=== PATIENT | female | born 1950 ===

== ENCOUNTER 2017-05-17 12:57 | Outpatient (CLI) | payer OTHER | END 2017-05-17 23:59 | disposition home or self-care (01) | LOC: 64 CT 12:57 | PROVIDERS: ATTEND Internal Medicine | DX: J34.89 Other specified disorders of nose and nasal sinuses (principal); R40.1 Stupor; H35.40 Unspecified peripheral retinal degeneration | CPT/HCPCS: 70450 ==

== ENCOUNTER 2017-06-12 17:54 | Inpatient (IN) | payer MEDICARE, OTHER ==
[~2017-06-12] VITALS: Ht 157.5 cm; Wt 91.8 kg
[2017-06-12] MEDS ORDERED: normal saline 1000ML IV soln IV ONE ×2 (18:00→19:05)
[2017-06-12] MEDS ORDERED: levoFLOXACIN-Levaquin 750MG/D5 150 ML IV ONE (18:00)
[2017-06-12 18:40] LABS: BASOPHILS % (AUTO) 0 % (0-1); EOSINOPHILS # (AUTO) 0.1 X10'3 (0-0.9); EOSINOPHILS % (AUTO) 0.2 % (0-6); HEMATOCRIT 30.4 % (35.0-45.0); HEMOGLOBIN 10.1 g/dl (12.0-16.0); LYMPHOCYTES # (AUTO) 1.9 X10'3 (1.1-4.8); LYMPHOCYTES % (AUTO) 5.6 % (21-51); MEAN CORPUSCULAR HEMOGLOBIN 28.2 PG (27.0-31.0); MEAN CORPUSCULAR HGB CONC 33.3 % (33.0-36.5); MEAN CORPUSCULAR VOLUME 84.6 FL (78-98); MEAN PLATELET VOLUME 8.5 FL (7.4-10.4); MONOCYTES % (AUTO) 2.8 % (2-12); NEUTROPHILS # (AUTO) 31.5 X10'3 (1.8-7.7); NEUTROPHILS % (AUTO) 91.4 % (42-75); PLATELET COUNT 66 X10'3 (140-440)
[2017-06-12 18:44] LABS: INR 1.1 INR; PARTIAL THROMBOPLASTIN TIME 31 SECONDS (22-32)
[2017-06-12 18:49] LABS: ALANINE AMINOTRANSFERASE 12 U/L (12-78); ALBUMIN/GLOBULIN RATIO 0.5 (1.1-1.5); ALKALINE PHOSPHATASE 125 IU/L (46-116); ANION GAP 14 (8-16); ASPARTATE AMINO TRANSFERASE 14 U/L (10-37); BILIRUBIN,TOTAL 0.4 MG/DL (0.1-1.0); BLOOD UREA NITROGEN 67 MG/DL (7-18); BUN/CREATININE RATIO 30.9 (6.6-38.0); CHLORIDE 109 MMOL/L (99-107); CREATININE 2.17 MG/DL (0.40-0.90); GLUCOSE 165 MG/DL (70-104); POTASSIUM 4.1 MMOL/L (3.5-5.1); SODIUM 138 MMOL/L (135-145); TOTAL CARBON DIOXIDE 15.3 MMOL/L (24-32); TOTAL PROTEIN 5.7 G/DL (6.4-8.2); eGFR 23 ML/MIN
[2017-06-12 18:51] LABS: WHITE BLOOD COUNT 34.4 X10'3 (4.5-11.0)
[2017-06-12] MEDS ORDERED: levoFLOXACIN-Levaquin 750MG/D5 150 ML IV STA (18:53)
[2017-06-12] MEDS ORDERED: vancomycin/NS 1 GM ADD-VANTAGE 250 ML IV ONE (18:55)
[2017-06-12 19:24] LABS: NUCLEATED RED BLOOD CELLS 1 /100WBC (0-0); TOTAL CELLS COUNTED 100
[2017-06-12 19:27] LABS: ANISOCYTOSIS 2+; BURR CELLS 1+; PLATELET ESTIMATE DECREASED; POIKILOCYTOSIS 1+; SCHISTOCYTES FEW; TOXIC GRANULATION 2+; TOXIC VACUOLATION 1+
[2017-06-12] MEDS ORDERED: LACT1CAP65 NG (22:03)
[2017-06-12] MEDS ORDERED: COLL30OI TP (22:03)
[2017-06-12] MEDS ORDERED: NYSPWD TP (22:03)
[2017-06-12] MEDS ORDERED: PREG50CA NG (22:03)
[2017-06-12] MEDS ORDERED: LANTUS SQ (22:03)
[2017-06-12] MEDS ORDERED: CIPR2.5D18 LEFTEYE (22:03)
[2017-06-12] MEDS ORDERED: [UNRECOGNIZED DRUG - CODE] IV (22:03)
[2017-06-12] MEDS ORDERED: SODI650T29 NG (22:03)
[2017-06-12] MEDS ORDERED: DAKINS 0.125% TOP (22:03)
[2017-06-12] MEDS ORDERED: LINE600T36 NG (22:03)
[2017-06-12] MEDS ORDERED: DOCU1ENE3 RC (22:03)
[2017-06-12] MEDS ORDERED: LORA0.5T NG (22:03)
[2017-06-12] MEDS ORDERED: ONDA4TAB6 NG (22:03)
[2017-06-12] MEDS ORDERED: ATOR40TA72 NG (22:03)
[2017-06-12] MEDS ORDERED: ISOS30TA9 NG (22:03)
[2017-06-12] MEDS ORDERED: INSU100C10 SQ (22:03)
[2017-06-12] MEDS ORDERED: ZITTEL BALM TOP (22:03)
[2017-06-12] MEDS ORDERED: [UNRECOGNIZED DRUG - CODE] TOP (22:03)
[2017-06-12] MEDS ORDERED: CALC355O3 NG (22:03)
[2017-06-12] MEDS ORDERED: MULT-685 NG (22:03)
[2017-06-12] MEDS ORDERED: AMLO10TA13 NG (22:03)
[2017-06-12] MEDS ORDERED: HYDR-569 NG (22:03)
[2017-06-12] MEDS ORDERED: [UNRECOGNIZED DRUG - CODE] NG (22:03)
[2017-06-12] MEDS ORDERED: FAMO20TA8 NG (22:03)
[2017-06-12] MEDS ORDERED: POLY17PO10 NG (22:03)
[2017-06-12] MEDS ORDERED: METO25TA6 NG (22:03)
[2017-06-12] MEDS ORDERED: [UNRECOGNIZED DRUG - CODE] IV (22:03)
[2017-06-12] MEDS ORDERED: ACET650T11 NG (22:03)
[2017-06-13] MEDS ORDERED: ondansetron/PF 4mg/2ml inj IV PRN
[2017-06-13] MEDS ORDERED: acetaminophen 650mg rectal suppository RC PRN
[2017-06-13] MEDS ORDERED: LIDOcaine 4% (40 mg/ml) topical solution 50ml TP PRN (00:10)
[2017-06-13] MEDS: normal saline 1000ml 1,000 ML IV SCH ×3 (01:21→14:29)
[2017-06-13 01:59] VITALS: BP 123/62
[2017-06-13 07:06] VITALS: BP 126/60
[2017-06-13] MEDS ORDERED: lactobacillus rhamnosus 10,000 MMU CELLS/CAPSULE PO SCH (07:30)
[2017-06-13] MEDS: COLLAGENASE TP SCH ×2 (08:00→20:00)
[2017-06-13] MEDS: heparin, porcine 5000 units/ml vial SQ SCH ×2 (08:00→20:12)
[2017-06-13] MEDS: vancomycin/NS 1 GM ADD-VANTAGE 250 ML IV SCH ×2 (08:55→20:10)
[2017-06-13 10:03] LABS: PREALBUMIN 8.9 MG/DL (19-36)
[2017-06-13] MEDS: insulin glargine (Lantus) pen - multi-dose SQ SCH (10:29)
[2017-06-13] MEDS: linezolid 600mg/300ml PREMIX 300 ML IV SCH ×2 (10:32→20:12)
[2017-06-13 11:00] VITALS: BP 111/72
[2017-06-13 20:00] VITALS: BP 120/60
[2017-06-14] VITALS: BP 117/54
[2017-06-14] MEDS: levoFLOXACIN-Levaquin 500mg/D5 100 ML IV SCH (07:12)
[2017-06-14] MEDS: LACTOBACILLUS RHAMNOSUS GG 15 billion unit sprinkle caps PO SCH (07:12)
[2017-06-14] MEDS: COLLAGENASE TP SCH ×2 (07:15→20:00)
[2017-06-14] MEDS ORDERED: VANCOMYCIN LEVEL IV ONE (07:30)
[2017-06-14 07:31] VITALS: BP 143/53
[2017-06-14] MEDS: heparin, porcine 5000 units/ml vial SQ SCH ×2 (08:00→20:00)
[2017-06-14] MEDS: vancomycin/NS 1 GM ADD-VANTAGE 250 ML IV SCH (08:42)
[2017-06-14] MEDS: insulin glargine (Lantus) pen - multi-dose SQ SCH (08:46)
[2017-06-14 08:52] LABS: ALANINE AMINOTRANSFERASE 7 U/L (12-78); ALBUMIN 1.7 G/DL (3.4-5.0); ALBUMIN/GLOBULIN RATIO 0.5 (1.1-1.5); ALKALINE PHOSPHATASE 107 IU/L (46-116); ANION GAP 15 (8-16); ASPARTATE AMINO TRANSFERASE 19 U/L (10-37); BILIRUBIN,TOTAL 0.3 MG/DL (0.1-1.0); BLOOD UREA NITROGEN 67 MG/DL (7-18); BUN/CREATININE RATIO 29.1 (6.6-38.0); CALCIUM 7.2 MG/DL (8.5-10.1); CHLORIDE 111 MMOL/L (99-107); GLUCOSE 212 MG/DL (70-104); POTASSIUM 4.2 MMOL/L (3.5-5.1); SODIUM 138 MMOL/L (135-145); TOTAL PROTEIN 5.1 G/DL (6.4-8.2); eGFR 21 ML/MIN
[2017-06-14 08:53] LABS: VANCOMYCIN,TROUGH 25.7 UG/ML (6.0-14.0)
[2017-06-14 08:54] LABS: TOTAL CARBON DIOXIDE 11.8 MMOL/L (24-32)
[2017-06-14 11:45] LABS: BASOPHILS % (AUTO) 0.1 % (0-1); EOSINOPHILS # (AUTO) 0.2 X10'3 (0-0.9); EOSINOPHILS % (AUTO) 0.9 % (0-6); HEMATOCRIT 29.2 % (35.0-45.0); HEMOGLOBIN 9.5 g/dl (12.0-16.0); LYMPHOCYTES # (AUTO) 1.6 X10'3 (1.1-4.8); LYMPHOCYTES % (AUTO) 7.7 % (21-51); MEAN CORPUSCULAR HGB CONC 32.7 % (33.0-36.5); MEAN CORPUSCULAR VOLUME 85.8 FL (78-98); MONOCYTES # (AUTO) 0.4 X10'3 (0-0.9); MONOCYTES % (AUTO) 2.1 % (2-12); NEUTROPHILS # (AUTO) 18.1 X10'3 (1.8-7.7); NEUTROPHILS % (AUTO) 89.2 % (42-75); RED CELL DISTRIBUTION WIDTH 18.4 % (11.5-14.5); WHITE BLOOD COUNT 20.3 X10'3 (4.5-11.0)
[2017-06-14 11:49] VITALS: BP 148/54
[2017-06-14 12:06] LABS: PLATELET COUNT 40 X10'3 (140-440)
[2017-06-14 12:12] LABS: TOTAL CELLS COUNTED 100
[2017-06-14 12:13] LABS: ANISOCYTOSIS 2+; BURR CELLS 2+; PLATELET ESTIMATE DECREASED; POIKILOCYTOSIS 1+
[2017-06-14 12:14] LABS: ACANTHOCYTES 1+
[2017-06-14 12:15] LABS: ELLIPTOCYTES 1+; TOXIC GRANULATION 2+
[2017-06-14] MEDS ORDERED: morphine 10mg/0.5ml (conc. morphine) oral syringe PO PRN (17:55)
[2017-06-14 19:30] VITALS: BP 171/63
[2017-06-15] MEDS: heparin, porcine 5000 units/ml vial SQ SCH ×2 (06:52→20:00)
[2017-06-15] MEDS: COLLAGENASE TP SCH ×2 (06:52→20:00)
[2017-06-15] MEDS: LACTOBACILLUS RHAMNOSUS GG 15 billion unit sprinkle caps PO SCH (06:52)
[2017-06-15 07:48] VITALS: BP 153/72
[2017-06-15] MEDS: insulin glargine (Lantus) pen - multi-dose SQ SCH (08:00)
[2017-06-15] MEDS: vancomycin inj 1,250 MG in normal saline 250ml IV soln 250 ML IV SCH (08:00)
[2017-06-15 12:42] VITALS: BP 105/69
[2017-06-15 20:00] VITALS: BP 154/60
[2017-06-16] MEDS: vancomycin inj 1,250 MG in normal saline 250ml IV soln 250 ML IV SCH (07:12)
[2017-06-16] MEDS: LACTOBACILLUS RHAMNOSUS GG 15 billion unit sprinkle caps PO SCH (07:12)
[2017-06-16] MEDS: levoFLOXACIN-Levaquin 500mg/D5 100 ML IV SCH (07:12)
[2017-06-16] MEDS: heparin, porcine 5000 units/ml vial SQ SCH (07:12)
[2017-06-16] MEDS: COLLAGENASE TP SCH (07:13)
[2017-06-16] MEDS: insulin glargine (Lantus) pen - multi-dose SQ SCH (07:13)
[2017-06-16 19:00] VITALS: BP 171/56
[2017-06-17] MEDS: LORazepam 2 mg/ml vial IV PRN ×2 (11:51→15:31)
[2017-06-17 12:00] VITALS: BP 145/73
[2017-06-18] MEDS ORDERED: VANCOMYCIN LEVEL IV ONE (07:30)
== END 2017-06-17 20:41 | disposition expired | DRG 871 ==
LOC: ER 17:55 → ED HOLD 06-13 → SUR 3N 06-13 01:38 → MED 3N 06-16 17:25
PROVIDERS: ADMIT Internal Medicine; ATTEND Family Medicine
DX: A41.9 Sepsis, unspecified organism (principal); G93.40 Encephalopathy, unspecified; L89.150 Pressure ulcer of sacral region, unstageable; N39.0 Urinary tract infection, site not specified; L89.610 Pressure ulcer of right heel, unstageable; R34 Anuria and oliguria; R62.7 Adult failure to thrive; Z51.5 Encounter for palliative care; Z66 Do not resuscitate; Z74.01 Bed confinement status; Z93.3 Colostomy status; Z88.2 Allergy status to sulfonamides; Z88.8 Allergy status to other drugs, medicaments and biological substances; Z91.018 Allergy to other foods
CPT/HCPCS: 36415; 71045; 80053; 80202; 82948; 83605; 83735; 84134; 84145; 85025; 85610; 85730; 87040; 87070; 87077; 87186; 93005; 96365; 96367; 99285; A4315; A4344; A4357; A4421; A6209; A6212; A6213; A6253; A6446; A6449; J1644; J1815; J1956; J2020; J2060; J3370; J7030